=== PATIENT | female | born 1960 | race Native Hawaiian/Other Pacific Islander ===

== ENCOUNTER 2016-12-07 09:46 | Outpatient (CLI) | payer BC ==
[~2016-12-07 09:46] MED LIST: BYSTOLIC5 MG PO; LYRICA150 MG PO; METF500T PO
== END 2016-12-07 19:22 | disposition home or self-care (01) ==
LOC: MAMMO 09:46
DX: Z12.31 Encounter for screening mammogram for malignant neoplasm of breast (principal)

== ENCOUNTER 2016-12-24 13:08 | Outpatient (CLI) | payer BC ==
[2016-12-24] MEDS ORDERED: PROTONIX20 MG PO (13:24)
[2016-12-24] MEDS ORDERED: METFTAB PO (13:26)
== END 2016-12-24 13:12 | disposition short-term general hospital (02) ==
LOC: AMB 13:08
DX: R55 Syncope and collapse (principal)
CPT/HCPCS: A0425; A0427

== ENCOUNTER 2016-12-24 13:12 | Emergency (ER) | payer BC ==
[~2016-12-24] VITALS: Ht 154.9 cm; Wt 86.6 kg
[2016-12-24] MEDS ORDERED: PROTONIX20 MG PO (13:24)
[2016-12-24] MEDS ORDERED: METFTAB PO (13:26)
[2016-12-24 13:32] LABS: PLATELET COUNT 324 K/uL (152-353)
[2016-12-24 13:41] LABS: POTASSIUM 4.7 mmol/L (3.6-5.2)
[2016-12-24 15:40] VITALS: BP 140/83; TEMP 98.4
== END 2016-12-24 16:34 | disposition short-term general hospital (02) ==
LOC: ED 13:12
DX: R00.2 Palpitations (principal); R55 Syncope and collapse
CPT/HCPCS: 80053; 82550; 84484; 85027; 85610; 85730; 93005; 99284

== ENCOUNTER 2017-03-02 08:53 | Outpatient (CLI) | payer BC ==
[~2017-03-02 08:53] MED LIST changes: +METFTAB PO; +PROTONIX20 MG PO
== END 2017-03-02 22:13 | disposition home or self-care (01) ==
LOC: US 08:53
DX: R10.11 Right upper quadrant pain (principal)

== ENCOUNTER 2017-07-31 15:06 | Outpatient (CLI) | payer BC ==
[2017-07-31 15:26] LABS: PLATELET COUNT 259 K/uL (152-353)
[2017-07-31 15:36] LABS: POTASSIUM 3.9 mmol/L (3.6-5.2)
== END 2017-07-31 19:54 | disposition home or self-care (01) ==
LOC: LABW 15:06
PROVIDERS: Orthopaedic Surgery
DX: M79.671 Pain in right foot (principal); M86.171 Other acute osteomyelitis, right ankle and foot
CPT/HCPCS: 36415; 80053; 85027; 85651

== ENCOUNTER 2017-09-19 14:33 | Outpatient (CLI) | payer BC | END 2017-09-19 22:46 | disposition home or self-care (01) | LOC: RAD 14:33 | DX: J20.8 Acute bronchitis due to other specified organisms (principal) ==

== ENCOUNTER 2017-10-25 13:33 | Emergency (ER) | payer BC ==
[~2017-10-25] VITALS: Ht 152.4 cm; Wt 90.7 kg
[2017-10-25 13:35] VITALS: TEMP 97.9
[2017-10-25] MEDS ORDERED: COZAAR100 MG PO (13:49)
[2017-10-25] MEDS ORDERED: SPIRONOLACT25 MG PO (14:01)
[2017-10-25] MEDS ORDERED: ASPIR-8181 MG PO (14:02)
[2017-10-25 14:16] LABS: PLATELET COUNT 280 K/uL (152-353)
[2017-10-25 14:29] LABS: POTASSIUM 4.1 mmol/L (3.6-5.2); SODIUM 141 mmol/L (136-145)
[2017-10-25 16:33] VITALS: BP 134/92
== END 2017-10-25 16:45 | disposition home or self-care (01) ==
LOC: ED 13:33
PROVIDERS: Internal Medicine
DX: R47.81 Slurred speech (principal); R47.1 Dysarthria and anarthria; R41.82 Altered mental status, unspecified; R53.83 Other fatigue; I10 Essential (primary) hypertension; K21.9 Gastro-esophageal reflux disease without esophagitis; S92.901A Unspecified fracture of right foot, initial encounter for closed fracture
CPT/HCPCS: 36415; 80053; 81000; 84484; 85027; 85610; 85730; 93005; 99283

== ENCOUNTER 2017-12-14 10:04 | Outpatient (CLI) | payer BC ==
[~2017-12-14 10:04] MED LIST changes: +ASPIR-8181 MG PO; +COZAAR100 MG PO; +SPIRONOLACT25 MG PO
[2017-12-14 11:21] LABS: PARTIAL THROMBOPLASTIN TIME 26.2 SECONDS (24.5-33.6)
== END 2017-12-14 19:22 | disposition home or self-care (01) ==
LOC: LABW 10:04
PROVIDERS: Orthopaedic Surgery
DX: E11.9 Type 2 diabetes mellitus without complications (principal); Z01.818 Encounter for other preprocedural examination; Z51.81 Encounter for therapeutic drug level monitoring
CPT/HCPCS: 36415; 83036; 85610; 85730

== ENCOUNTER 2018-05-01 17:01 | Outpatient (CLI) | payer BC | END 2018-05-01 19:52 | disposition home or self-care (01) | LOC: RAD 17:01 | DX: R05 Cough (principal) ==

== ENCOUNTER 2018-07-16 12:55 | Outpatient (CLI) | payer BC | END 2018-07-16 21:18 | disposition home or self-care (01) | LOC: RESP 12:55 | DX: R06.02 Shortness of breath (principal) ==

== ENCOUNTER 2018-08-06 11:02 | Outpatient (CLI) | payer BC | END 2018-08-06 19:18 | disposition home or self-care (01) | LOC: LABW 11:02 | DX: J45.51 Severe persistent asthma with (acute) exacerbation (principal) | CPT/HCPCS: 36415; 82785; 86003 ==

== ENCOUNTER 2020-03-04 08:23 | Outpatient (CLI) | payer BC ==
[~2020-03-04] VITALS: Ht 154.9 cm; Wt 103.4 kg
== END 2020-03-04 18:57 | disposition home or self-care (01) ==
LOC: NM 08:23
PROVIDERS: ATTEND Internal Medicine Cardiovascular Disease
DX: R07.9 Chest pain, unspecified (principal)
CPT/HCPCS: A9500; J2785

== ENCOUNTER 2020-08-31 10:56 | Outpatient (CLI) | payer BC | END 2020-08-31 23:59 | disposition home or self-care (01) | LOC: MAMMO 10:56 | PROVIDERS: ATTEND Nurse Practitioner Family | DX: Z12.31 Encounter for screening mammogram for malignant neoplasm of breast (principal); I10 Essential (primary) hypertension; N28.89 Other specified disorders of kidney and ureter ==

== ENCOUNTER 2020-09-08 10:15 | Outpatient (CLI) | payer BC | END 2020-09-08 22:13 | disposition home or self-care (01) | LOC: MAMMO 10:15 | PROVIDERS: ATTEND Nurse Practitioner Family | DX: Z12.31 Encounter for screening mammogram for malignant neoplasm of breast (principal) ==

== ENCOUNTER 2021-05-02 09:08 | Outpatient (CLI) | payer OTHER, BC | END 2021-05-02 18:47 | disposition home or self-care (01) | LOC: RAD 09:08 | PROVIDERS: ATTEND Internal Medicine | DX: Z02.71 Encounter for disability determination (principal) ==

== ENCOUNTER 2022-01-10 07:52 | Outpatient (CLI) | payer BC | END 2022-01-10 19:13 | disposition home or self-care (01) | LOC: RAD 07:52 | PROVIDERS: ATTEND Nurse Practitioner Family | DX: M54.89 Other dorsalgia (principal); M25.552 Pain in left hip; M25.551 Pain in right hip ==

== ENCOUNTER 2022-07-07 14:22 | Outpatient (CLI) | payer OTHER | END 2022-07-07 19:22 | disposition home or self-care (01) | LOC: RAD 14:22 | PROVIDERS: ATTEND Neurological Surgery | DX: Z78.0 Asymptomatic menopausal state (principal) ==